=== PATIENT | male | born 1965 | race Caucasian/White ===

== ENCOUNTER 2019-03-26 17:23 | Emergency (ER) | payer SELFPAY ==
[~2019-03-26] VITALS: Ht 175.3 cm; Wt 65.8 kg
[2019-03-26 18:10] VITALS: BP 148/70
--- NOTE | 2019-03-26 18:30 | PHYS DOC ---
Adult General Chief Complaint Chief Complaint: KNEE INJURY HPI HPI Patient is a 54 year old male who presents to the Ed from [facility] complaining of infection to the right lateral knee, he states he was just discharged from [facility] and sent to the [facility]. He states he does not want to go back to the [facility] because of many results including the hallway being too long walk. He states he does not like the [facility] either. He states he was given antibiotics for home use. Denies any fever. Denies any drainage from the incision site. Review of Systems Review of Systems Constitutional: Denies fever or chills [] Eyes: Denies change in visual acuity, redness, or eye pain [] HENT: Denies nasal congestion or sore throat [] Respiratory: Denies cough or shortness of breath [] Cardiovascular: No additional information not addressed in HPI [] GI: Denies abdominal pain, nausea, vomiting, bloody stools or diarrhea [] : Denies dysuria or hematuria [] Musculoskeletal: Reports infection to the right lateral knee Integument: Denies rash or skin lesions [] Neurologic: Denies headache, focal weakness or sensory changes [] All other systems were reviewed and found to be within normal limits, except as documented in this note. Physical Exam Physical Exam Constitutional: Well developed, well nourished, no acute distress, non-toxic appearance. [] HENT: Normocephalic, atraumatic, bilateral external ears normal, oropharynx moist, no oral exudates, nose normal. [] Eyes: PERRLA, EOMI, conjunctiva normal, no discharge. [] Neck: Normal range of motion, no tenderness, supple, no stridor. [] Cardiovascular:Heart rate regular rhythm, no murmur [] Lungs & Thorax: Bilateral breath sounds clear to auscultation [] Abdomen: Bowel sounds normal, soft, no tenderness, no masses, no pulsatile masses. [] Skin: Warm, dry, no erythema, no rash. [] Back: No tenderness, no CVA tenderness. [] Extremities: Right lateral knee with the wound with stitches underneath, no drainage, trace erythema around the wound. No erythema to the anterior knee. Full range of motion to the right knee. +2 right pedal pulse. Neurologic: Alert and oriented X 3, normal motor function, normal sensory function, no focal deficits noted. [] Psychologic: Flat affect Current Patient Data Vital Signs Vital Signs Date Time Temp Pulse Resp B/P (MAP) Pulse Ox O2 Delivery O2 Flow Rate FiO2 03/26/19 18:10 98.2 92 14 148/70 (96) 95 Room Air 98.2 EKG EKG [] Radiology/Procedures Radiology/Procedures [] Course & Med Decision Making Course & Med Decision Making Pertinent Labs and Imaging studies reviewed. (See chart for details) This is a 54-year-old male patient presented to the ED today with a wound on the right lateral knee, patient has just been discharged from [facility], was sent to the [facility] he currently presents to the ED stating he does not like the [facility] and would like to stay in the hospital. Informed patient he does not have any medical condition to work around an admission. He has antibiotics to take at the [facility]. He states he does not want to go back. We will discharge him to the [facility] or home if he has a home Dragon Disclaimer Dragon Disclaimer This electronic medical record was generated, in whole or in part, using a voice recognition dictation system. Departure Departure Impression: Primary Impression: Knee pain Additional Impressions: Infection of knee Homelessness Disposition: HOME, SELF-CARE Condition: STABLE Referrals: TAYE GUILLEN MD Patient Instructions: Skin Infections Additional Instructions: You were seen for skin infection to the right lateral knee. Please continue taking your antibiotics. Please follow with your doctor next week. Problem Qualifiers Primary Impression: Knee pain Chronicity: acute Laterality: right Qualified Codes: M25.561 - Pain in right knee MARIAN ARREGUIN [employer] Mar 26, 2019 18:30
== END 2019-03-26 18:34 | disposition home or self-care (01) ==
LOC: ER 17:23
DX: M25.561 Pain in right knee (principal); L08.9 Local infection of the skin and subcutaneous tissue, unspecified; Z59.0 Homelessness
CPT/HCPCS: 99283